=== PATIENT | male | born 1945 | race African-American/Black ===

== ENCOUNTER → 2016-09-23 | Outpatient (CLI) | payer OTHER, MEDICAID ==
[~2016-09-23] MED LIST: BUME1TAB PO; DILT180C56 PO; HYDR10TA16 PO; LANTUSP SQ; LISI10TA PO; METF-324 PO; METO50TA PO; POTA-243 PO
[2016-09-23 17:09] LABS: HEMOGLOBIN A1a 0.9 %; HEMOGLOBIN A1b 2.5 %; HEMOGLOBIN Ao 80.3 %; HEMOGLOBIN LA1C 2.9 %; HEMOGLOBIN P3 4.4 %
== END ==
LOC: CLAB 08:10
DX: E11.9 Type 2 diabetes mellitus without complications (principal)
CPT/HCPCS: 36415; 83036